=== PATIENT | female | born 2000 ===

== ENCOUNTER 2025-01-16 19:33 | Emergency (ER) | payer SELFPAY ==
[~2025-01-16] VITALS: Ht 160 cm; Wt 63.5 kg
[2025-01-16 19:50] VITALS: BP 118/65; TEMP 97.9; O2SAT 98
[2025-01-16] MEDS ORDERED: LAMI1TAB8 PO (19:52)
[2025-01-16] MEDS ORDERED: MIRT-89 PO (19:52)
== END 2025-01-16 23:55 | disposition left against medical advice (07) ==
LOC: M ED 19:33
DX: Z53.21 Procedure and treatment not carried out due to patient leaving prior to being seen by health care provider (principal)